=== PATIENT | male | born 1980 | race Caucasian/White ===

== ENCOUNTER 2020-05-22 21:39 | Emergency (ER) | payer MEDICAID, OTHER ==
[~2020-05-22] VITALS: Ht 175.3 cm; Wt 75.0 kg
[~2020-05-22 21:39] MED LIST: NO HOME MEDS
[2020-05-22] MEDS ORDERED: azithromycin 250mg tablet PO ONE (22:30)
[2020-05-22] MEDS ORDERED: CefTRIAXone 1000mg IM Kit (w/lidocaine diluent) IM ONE (22:30)
[2020-05-22] MEDS ORDERED: metroNIDAZOLE 500mg tablet PO ONE (22:30)
[2020-05-22 22:43] LABS: CLARITY,URINE SLIGHTLY CLOUDY (Clear); COLOR,URINE YELLOW (Yellow); GLUCOSE, URINE NEGATIVE (Neg); KETONES,URINE NEGATIVE (Neg); LEUKOCYTE ESTERASE ,URINE MODERATE (Neg); NITRITES, URINE NEGATIVE (Neg); OCCULT BLOOD,URINE TRACE-INTACT (Neg); PH,URINE 6.5 (4.8-8.0); PROTEIN,URINE TRACE mg/dl (Neg)
[2020-05-22 22:44] LABS: BASOPHILS # (AUTO) 0.1 X10'3 (0-0.2); BASOPHILS % (AUTO) 0.9 % (0-1); EOSINOPHILS # (AUTO) 0.2 X10'3 (0-0.9); EOSINOPHILS % (AUTO) 1.1 % (0-6); HEMATOCRIT 41.3 % (42.0-52.0); HEMOGLOBIN 14.4 g/dl (14.0-17.9); LYMPHOCYTES # (AUTO) 2.9 X10'3 (1.1-4.8); LYMPHOCYTES % (AUTO) 17.7 % (21-51); MEAN CORPUSCULAR HEMOGLOBIN 33.2 PG (27.0-31.0); MEAN CORPUSCULAR HGB CONC 34.9 g/dL (33.0-36.5); MEAN CORPUSCULAR VOLUME 95.1 FL (78-98); MEAN PLATELET VOLUME 7.6 FL (7.4-10.4); MONOCYTES # (AUTO) 1.6 X10'3 (0-0.9); MONOCYTES % (AUTO) 9.5 % (2-12); NEUTROPHILS # (AUTO) 11.7 X10'3 (1.8-7.7); NEUTROPHILS % (AUTO) 70.8 % (42-75); PLATELET COUNT 369 X10'3 (140-440); RED BLOOD COUNT 4.34 X10'6 (4.70-6.10); WHITE BLOOD COUNT 16.5 X10'3 (4.5-11.0)
[2020-05-22 22:52] LABS: UA COLLECTION TYPE CLN CATCH MIDSTREAM
[2020-05-22 22:53] LABS: BACTERIA,URINE FEW /HPF (Neg); RBC,URINE 0-2 /HPF (0-2); SQUAMOUS EPITHELIAL CELL,UR FEW /LPF (FEW); WBC CLUMPS,URINE MODERATE /HPF (NEGATIVE); WBC,URINE 30-50 /HPF (0-4)
[2020-05-22 23:00] LABS: ALANINE AMINOTRANSFERASE 41 U/L (12-78); ALBUMIN 3.1 G/DL (3.4-5.0); ALBUMIN/GLOBULIN RATIO 0.8 (1.1-1.5); ALKALINE PHOSPHATASE 84 IU/L (46-116); ANION GAP 9 (8-16); ASPARTATE AMINO TRANSFERASE 16 U/L (10-37); BILIRUBIN,TOTAL 0.3 MG/DL (0.1-1.0); BLOOD UREA NITROGEN 12 MG/DL (7-18); BUN/CREATININE RATIO 12.4 (5.4-32.0); CHLORIDE 101 MMOL/L (99-107); CREATININE 0.97 MG/DL (0.60-1.10); GLUCOSE 121 MG/DL (70-104); LIPASE 188 U/L (73-393); POTASSIUM 3.8 MMOL/L (3.5-5.1); SODIUM 136 MMOL/L (135-145); TOTAL CARBON DIOXIDE 26.1 MMOL/L (24-32); eGFR 86 ML/MIN
[2020-05-22] MEDS ORDERED: CEPH-572 PO (23:12)
[2020-05-22 23:22] VITALS: BP 114/69
== END 2020-05-22 23:27 | disposition home or self-care (01) ==
LOC: ER 21:40
DX: K40.90 Unilateral inguinal hernia, without obstruction or gangrene, not specified as recurrent (principal); A64 Unspecified sexually transmitted disease; N39.0 Urinary tract infection, site not specified; Z91.048 Other nonmedicinal substance allergy status; Z79.2 Long term (current) use of antibiotics
CPT/HCPCS: 36415; 80053; 81001; 83605; 83690; 85025; 86592; 87088; 87491; 87591; 96372; 99284; J0696; 96374; 99283; J3490

== ENCOUNTER → 2023-12-31 | Outpatient (CLI) | payer MEDICAID | END | disposition home or self-care (01) | LOC: RAD 11:34 | PROVIDERS: ATTEND Nurse Practitioner Primary Care | DX: K40.90 Unilateral inguinal hernia, without obstruction or gangrene, not specified as recurrent (principal) | CPT/HCPCS: 76856 ==

== ENCOUNTER 2024-03-22 04:32 | Emergency (ER) | payer MEDICAID ==
[~2024-03-22] VITALS: Ht 154.9 cm; Wt 78.7 kg
[2024-03-22 04:44] VITALS: TEMP 98.1
[2024-03-22] MEDS ORDERED: AMOX-580 PO (05:09)
[2024-03-22] MEDS: amox tr/potassium clavulanate 875/125mg TAB PO ONE (05:13)
[2024-03-22 05:14] VITALS: BP 126/90; PULSE 88; O2SAT 97
[2024-03-22 05:19] VITALS: RESP 14
[2024-03-22] MEDS: ketorolac trometh 30MG/ML vial 30 MG/ML VIAL IM ONE (05:19)
[2024-03-22] MEDS: ketorolac trometh 15mg/ml vial 15 MG/ML ML IM ONE (05:23)
== END 2024-03-22 05:22 | disposition home or self-care (01) ==
LOC: ER 04:33
DX: K04.7 Periapical abscess without sinus (principal); F17.210 Nicotine dependence, cigarettes, uncomplicated; Z88.8 Allergy status to other drugs, medicaments and biological substances; Z79.2 Long term (current) use of antibiotics
CPT/HCPCS: 96372; 99283; J1885

== ENCOUNTER 2024-09-16 19:28 | Emergency (ER) | payer MEDICAID ==
[~2024-09-16] VITALS: Ht 175.3 cm; Wt 63.5 kg
[2024-09-16 20:18] VITALS: BP 134/86; PULSE 78; RESP 16; TEMP 98.8; O2SAT 98
== END 2024-09-16 20:19 | disposition home or self-care (01) ==
LOC: ER 19:28
DX: S62.306A Unspecified fracture of fifth metacarpal bone, right hand, initial encounter for closed fracture (principal); Z98.890 Other specified postprocedural states; W23.0XXA Caught, crushed, jammed, or pinched between moving objects, initial encounter; Y93.89 Activity, other specified; Y92.89 Other specified places as the place of occurrence of the external cause; Y99.8 Other external cause status
CPT/HCPCS: 29125; 73130; 99283

== ENCOUNTER 2024-11-22 08:23 | Emergency (ER) | payer MEDICAID ==
[~2024-11-22] VITALS: Ht 175.3 cm; Wt 79.5 kg
[2024-11-22] MEDS ORDERED: AMOX-117 PO (08:38)
[2024-11-22] MEDS ORDERED: NAPR-56 PO (08:38)
[2024-11-22] MEDS ORDERED: CHLO473M2 PO (08:38)
--- NOTE | 2024-11-22 08:38 | Physician Documentation ---
History of Present Illness ~ Chief Complaint: Abscess Stated Complaint: ABCESS Time Seen by MD: 08:32 Primary Medical Doctor: neva [facility] This is a 44-year-old male who presents to the emergency department with three days of right upper incisor dental pain and associated swelling which extends into the right cheek. He denies any chills or fever, chest pain or shortness of Breath. He denies chronic medical problems. He reports that he does not take daily medications. Tetanus Within 5 Years: Yes Medication Reconciliation Allergies: Coded Allergies: Opioids - Morphine Analogues (Verified Allergy, Unknown, vomiting, 11/22/24) Scheduled Amox Tr/Potassium Clavulanate (Augmentin 875-125 Tablet), 1 TAB PO Q12H Chlorhexidine Gluconate (Chlorhexidine Gluconate), 15 ML PO Q12H Naproxen (Naproxen), 1 TAB PO Q12H Miscellaneous Medications Home Med List (No Home Medications), (Reported) Past Medical History Past Medical History: Hernia Past Surgical History: orthopedic surgeries Alcohol Use: Rarely Lives with: Family Lives In: Home Occupation: employed Review of Systems ROS As stated above in the HPI, otherwise all systems are reviewed and negative. Physical Exam Vital Signs: Temperature: 97.8, Source: Oral, Heart Rate: 77, Respiratory Rate: 18, BP: 153/92, Pulse Oximetry: 100, Weight: 79.550 Physical Exam General: Alert, no apparent distress. HEENT: PERRL, EOMI, no injection, moist mucous membranes. Very poor dentition with multiple teeth missing, cracked and in obvious decay. Erythema surrounds teeth 5,6,7, and 8. Most noted above tooth #6 but no abscess present. Uvula midline. No trismus. Neck: Full range of motion. Respiratory: Lungs clear, no respiratory distress. Chest: No accessory muscle use. Cardiovascular: Regular rate and rhythm, no murmurs. Gastrointestinal: Soft, nontender, nondistended. Bowels sounds present. Extremities: Normal range of motion, no deformity. Neurologic: Oriented x4. Psychiatric: Normal mood and affect. Skin: Normal color, warm and dry. No edema, no ecchymosis. Progress Results/Orders Results/Orders Vital Signs 11/22/24 08:28 Temp 97.8 Pulse 77 Resp 18 B/P (MAP) 153/92 Pulse Ox 100 Medical Decision Making Differential Dx:Considerations: Include: Abscess, Bacteremia Additional Comment This is a well-appearing 44-year-old male who notes history of poor dentition. He has a Dentist in [place], and feels that he can get an appointment within the next two weeks. He will be treated with antibiotics for his extensive dental decay and obvious infection. He has no danger signs to include trismus, fever, chills, airway compromise. He is to see a dentist within two weeks, return if worse. Toradol 30 mg IM given in ER prior to d/c. Departure Time of Disposition: 08:37 Disposition: 01 HOME / SELF CARE / HOMELESS Impression: Primary Impression: Dental infection Condition: Stable Discharge Instructions: Dental Caries, Adult, Dental Pain Referrals: NO PRIMARY CARE PROVIDER (PCP) Prescriptions Chlorhexidine Gluconate (Chlorhexidine Gluconate) 0.12 % Mouthwash 15 ML PO Q12H for 14 Days, #473 ML 0 Refills Swish and spit Prov: GREGORY FLYNN NP 11/22/24 Naproxen (Naproxen) 500 Mg Tablet 1 TAB PO Q12H, #20 TAB Prov: GREGORY FLYNN NP 11/22/24 Amox Tr/Potassium Clavulanate (Augmentin 875-125 Tablet) 1 Each Tablet 1 TAB PO Q12H for 7 Days, #14 TAB Prov: GREGORY FLYNN NP 11/22/24 Education Educated: Patient Educated regarding: diagnosis, treatment, prognosis, need for follow up Signature Scribe Signature: no scribe Attestation: The note accurately reflects work and decisions made by me.Gregory Garcia NP 11/22/24 08:44 GREGORY FLYNN NP November 22, 2024 08:38
[2024-11-22] MEDS: ketorolac trometh 30MG/ML vial 30 MG/ML VIAL IM ONE (08:54)
[2024-11-22 09:00] VITALS: BP 153/92; PULSE 77; RESP 16; TEMP 97.8; O2SAT 100
== END 2024-11-22 09:02 | disposition home or self-care (01) ==
LOC: ER 08:24
DX: K04.7 Periapical abscess without sinus (principal); Z88.5 Allergy status to narcotic agent; Z79.899 Other long term (current) drug therapy; Z98.890 Other specified postprocedural states
CPT/HCPCS: 96372; 99283; J1885